=== PATIENT | male | born 1960 | race Caucasian/White ===

== ENCOUNTER 2020-09-28 11:04 | Emergency (ER) | payer OTHER ==
--- NOTE | 2020-09-28 11:48 | RAD ---
PORTABLE CHEST 1 VIEW: Date: 09/28/2020 Time: 1143 hours HISTORY: Cough with COVID symptoms. FINDINGS: The heat size is normal. The lungs are expanded without focal areas of consolidation, pneumothoraces, or pleural effusions. IMPRESSION: No radiographic evidence of acute cardiopulmonary process. POS: JAN
[2020-09-28 18:07] LABS: SARS-CoV-2 PCR by NAA DETECTED (NotDetected)
== END 2020-09-28 13:27 | disposition home or self-care (01) ==
LOC: ERS 11:04
DX: U07.1 COVID-19 (principal); J06.9 Acute upper respiratory infection, unspecified
CPT/HCPCS: 71045; 87635; U0003; U0005